=== PATIENT | female | born 1990 | race Two or more races ===

== ENCOUNTER 2020-12-11 16:59 | Emergency (ER) | payer OTHER ==
[~2020-12-11] VITALS: Ht 160 cm; Wt 63.5 kg
[2020-12-11] MEDS ORDERED: SODIUM CHLORIDE 0.9% 1,000 ML IV ONE (17:45)
[2020-12-11 18:56] LABS: Basophils # (auto) 0 10 ^3/uL (0-0.2); Basophils % (auto) 0.3 % (0.0-2.0); Eosinophils # (auto) 0 10 ^3/uL (0-0.8); Eosinophils % (auto) 0.5 % (0.0-7.0); Hematocrit 38.6 % (36.0-46.0); Hemoglobin 13.1 g/dL (12.2-16.2); Lymphocytes # (auto) 2.1 10 ^3/uL (0.4-5.4); Lymphocytes % (auto) 25.2 % (10.0-50.0); Mean Corpuscular Hemoglobin 31.8 pg (28.0-32.0); Mean Corpuscular Hgb Conc. 34.1 g/dL (32.0-36.0); Mean Corpuscular Volume 93.5 fL (80.0-100.0); Monocytes # (auto) 0.6 10 ^3/uL (0-1.3); Monocytes % (auto) 7.4 % (0.0-12.0); Neutrophils # (auto) 5.5 10 ^3/uL (1.6-8.6); Neutrophils % (auto) 66.6 % (37.0-80.0); Platelet Count (auto) 169 10^3/uL (140-450); Red Blood Cells 4.12 10^6/uL (4.0-5.20); White Blood Cell 8.2 10^3/uL (4.4-10.8)
[2020-12-11 19:14] LABS: Albumin 3.7 g/dL (3.4-5.0); Calcium 8.6 mg/dL (8.5-10.1); Potassium 3.3 mmol/L (3.5-5.1)
[2020-12-11 19:19] LABS: BUN/Creatinine Ratio 19.3; Bilirubin, Total 0.8 mg/dL (0.2-1.0); Total Protein 7.2 g/dL (6.4-8.2)
[2020-12-11 19:21] LABS: Partial Thromboplastin Time 30.7 sec (23.0-31.2)
[2020-12-11] MEDS ORDERED: POTASSIUM CHL 20 Meq TABLET PO ONE (20:00)
[2020-12-11 21:29] LABS: Urine Bacteria MOD /hpf (None Seen); Urine Blood 2+ /uL (Negative); Urine Mucus FEW (None Seen); Urine Specific Gravity 1.034 (1.001-1.035); Urine WBC 26 /hpf (0 - 5)
[2020-12-11 21:40] LABS: Amphetamine Screen, Urine NEGATIVE (NEGATIVE); Barbiturate Scree,Urine NEGATIVE (NEGATIVE); Benzodiazephine Screen, Urine NEGATIVE (NEGATIVE); Cannabinoid Screen, Urine NEGATIVE (NEGATIVE); Cocaine Screen, Urine NEGATIVE (NEGATIVE); Opiate Scree,Urine NEGATIVE (NEGATIVE); Phencyclidine Screen, Urine NEGATIVE (NEGATIVE)
[2020-12-11] MEDS ORDERED: cefTRIAXone SOD 1,000 MG VL IM ONE (22:30)
[2020-12-11 23:04] VITALS: BP 102/49
== END 2020-12-11 23:34 | disposition home or self-care (01) ==
LOC: ER 16:59
DX: O23.41 Unspecified infection of urinary tract in pregnancy, first trimester (principal); O46.91 Antepartum hemorrhage, unspecified, first trimester; O26.891 Other specified pregnancy related conditions, first trimester; E87.6 Hypokalemia; Z3A.01 Less than 8 weeks gestation of pregnancy
CPT/HCPCS: 36415; 76801; 80053; 80307; 81001; 84702; 85025; 85610; 85730; 96372; 99284; J0696